=== PATIENT | female | born 1970 | race Caucasian/White ===

== ENCOUNTER 2020-04-09 09:11 | Day surgery (SDC) | payer BC ==
[~2020-04-09 09:11] MED LIST: Lactated Ringers 1,000 ML IV SCH
[2020-04-09] MEDS ORDERED: Propofol 200 MG/20 ML SDV ONE ×2 (09:47→10:54)
[2020-04-09] MEDS ORDERED: fentaNYL 100 MCG/2 ML SDV ONE (09:48)
[2020-04-09] MEDS ORDERED: Midazolam 1 MG/ML 2 ML SDV ONE (09:48)
--- NOTE | 2020-04-10 10:08 | OR ---
PREOPERATIVE DIAGNOSIS: Positive Cologuard test. POSTOPERATIVE DIAGNOSIS: Positive Cologuard test. PROCEDURE PERFORMED: Colonoscopy. INDICATIONS: Ms. Black is a 50-year-old female with a history of positive Cologuard test, presents for colonoscopy for further evaluation. PROCEDURE IN DETAIL: This was done in the endoscopy suite. Sedation was given per Anesthesia. She was placed in left lateral position. First, a rectal exam was done and was normal. Scope was slowly introduced into the rectum, advanced to the sigmoid, descending, transverse, and ascending colon until the cecum was reached. The patient did have an extremely poor bowel prep with some multiple areas of solid stool, which was not amenable to irrigation. Upon reaching the cecum, scope was slowly withdrawn looking at all mucosal surfaces on the way out. I was able to get a very fairly good look at the cecum, ascending colon, and majority of the transverse colon. Somewhere at the splenic flexure where there was a [id number] and half area of soupy stool where there were too many hard chunks to really be able to adequately irrigate it, so I did not get good visualization of that area, did not finally pass that. The remaining descending and sigmoid colon were good until approximately 25 cm where a small polyp was found and removed by hot loop forceps and sent to pathology, and then the remainder of the exam was normal. FINAL DIAGNOSIS: Polyp at 24 cm with poor visualization with recommendation to repeat the colonoscopy in the near future with a different bowel prep for full evaluation. CC: [facility], [place] [id number] BKD: 04/09/2020 11:51:10 MODL: 04/09/2020 17:46:04 /[id number]
== END 2020-04-09 12:50 | disposition home or self-care (01) ==
LOC: VM.SDS 09:11
PROVIDERS: ATTEND Surgery
DX: K63.5 Polyp of colon (principal); F41.9 Anxiety disorder, unspecified; E03.9 Hypothyroidism, unspecified; E66.9 Obesity, unspecified; Z79.899 Other long term (current) drug therapy; Z88.0 Allergy status to penicillin; Z87.891 Personal history of nicotine dependence; Z68.26 Body mass index [BMI] 26.0-26.9, adult; Z79.890 Hormone replacement therapy
CPT/HCPCS: 45384; J2704; J3010; J7120; J2250

== ENCOUNTER 2020-11-12 08:50 | Day surgery (SDC) | payer BC ==
[~2020-11-12 08:50] MED LIST changes: +Sodium Chloride 0.9% 10 ML Syringe FLUSH PRN
[2020-11-12] MEDS ORDERED: Propofol 200 MG/20 ML SDV ONE (09:58)
[2020-11-12] MEDS ORDERED: fentaNYL 100 MCG/2 ML SDV ONE (09:58)
--- NOTE | 2020-11-12 11:46 | OR ---
PREOPERATIVE DIAGNOSIS: Positive Cologuard test. POSTOPERATIVE DIAGNOSIS: Positive Cologuard test. PROCEDURE PERFORMED: Colonoscopy. INDICATIONS: Ms. Black is a 50-year-old female with a positive Cologuard test, presents for colonoscopy for further evaluation. She had a colonoscopy done in May, which failed due to poor prep. PROCEDURE IN DETAIL: This was done in the endoscopy suite. Sedation was given per Anesthesia. She was placed in left lateral position. First, a rectal exam was done and was normal. Scope was introduced into the rectum through the sigmoid, descending, transverse, and ascending colon until the cecum was reached. Upon reaching the cecum, scope was slowly withdrawn looking at all mucosal surfaces on the way out. No mucosal abnormalities, lesions, or polyps noted. She had a few scattered sigmoid diverticula. FINAL DIAGNOSIS: Sigmoid diverticulosis. BKD: 11/12/2020 10:44:32 MODL: 11/12/2020 11:14:06 /[id number]
== END 2020-11-12 12:09 | disposition home or self-care (01) ==
LOC: VM.SDS 08:50
PROVIDERS: ATTEND Surgery
DX: K57.30 Diverticulosis of large intestine without perforation or abscess without bleeding (principal); F41.9 Anxiety disorder, unspecified; E03.9 Hypothyroidism, unspecified; E66.9 Obesity, unspecified; G47.30 Sleep apnea, unspecified; Z01.812 Encounter for preprocedural laboratory examination; Z20.828 Contact with and (suspected) exposure to other viral communicable diseases; Z98.890 Other specified postprocedural states; Z79.899 Other long term (current) drug therapy; Z79.890 Hormone replacement therapy; Z88.1 Allergy status to other antibiotic agents; Z87.891 Personal history of nicotine dependence
CPT/HCPCS: 00811; J2704; J3010; J7120; U0002